=== PATIENT | female | born 1995 | race Caucasian/White ===

== ENCOUNTER 2018-10-19 05:39 | Inpatient (IN) ==
[2018-10-19] MEDS ORDERED: LACTATED RINGERS 500 ML IV PRN (06:10)
[2018-10-19] MEDS ORDERED: ONDANSETRON 4 MG/2 ML VIAL IV PRN (06:10)
[2018-10-19] MEDS ORDERED: BUTORPHANOL 2 MG/ML VIAL IV PRN (06:10)
[2018-10-19 06:30] LABS: Basophils % 0.4 % (0.0-0.8); Eosinophils # 0.2 10*3/uL (0.0-0.87); Eosinophils % 2.6 % (0.00-10.9); Hemoglobin 12.1 GM/DL (12.0-16.0); Immature Granulocytes % 0.7 %; Immature Granulocytes Absolute 0.07 #; Lymphocytes # 2.8 10*3/uL (1.4-4.0); Lymphocytes % 29.6 % (21.3-54.2); Mean Corpuscular HGB Conc 31.8 GM/DL (32-36); Mean Platelet Volume 13.2 FL (9.6-12.0); Monocytes % 5.9 % (1.7-12.7); Neutrophils % 60.8 % (38.7-73.9); Platelet Count 153 T/CUMM (130-400); Red Blood Count 3.96 MC/CUMM (3.8-5.5); Red Cell Distribution Width 14.1 % (9.3-17.3); White Blood Count 9.3 T/CUMM (4-12)
[2018-10-19] MEDS ORDERED: LACTATED RINGERS 1,000 ML IV SCH ×2 (06:30→08:30)
[2018-10-19] MEDS ORDERED: OXYTOCIN/LR 20 UNIT/1,000 ML BAG IV SCH (07:30)
[2018-10-19 08:04] LABS: INR 0.9; PT Patient Result 9.6 SECS; Partial Thromboplastin Time 26.7 SECS (0-40)
[2018-10-19] MEDS ORDERED: FAMOTIDINE 20 MG/2 ML VIAL IV ONE (08:14)
[2018-10-19] MEDS ORDERED: CITRIC ACID/SODIUM CITRATE 30 ML UDCUP PO ONE (08:14)
[2018-10-19] MEDS ORDERED: hydrOXYzine HCL 25 MG/1 ML VIAL IM PRN (08:14)
[2018-10-19] MEDS ORDERED: LACTATED RINGERS 1,000 ML IV ONE (08:14)
[2018-10-19] MEDS ORDERED: ePHEDrine 50 MG/ML AMP IV PRN (08:14)
[2018-10-19] MEDS ORDERED: NALOXONE 0.4 MG/ML VIAL IV PRN (08:14)
[2018-10-19] MEDS ORDERED: diphenhydrAMINE 50 MG/1 ML VIAL IV PRN ×2 (08:14)
[2018-10-19] MEDS ORDERED: PROMETHAZINE 25 MG/1 ML VIAL IM ONE (08:14)
[2018-10-19] MEDS ORDERED: fentaNYL 2 MCG/ROPIV 0.2% EPID 100 ML EPIDURAL SCH (08:30)
[2018-10-19 12:14] LABS: Apearance,Urine CLEAR (Clear); Bacteria,Urine Occasional /HPF (Few); Bilirubin,Urine Negative (Negative); Blood, Urine Negative (Negative); Glucose,Urine (UA) Negative (Negative); Ketones,Urine Negative (Negative); Mucus,Urine Few /LPF (Occasional); Nitrite,Urine Negative (Negative); Protein,Urine Negative; RBC,Urine 3 /HPF (0-4); Squamous Epithelial Cell,Urine Occasional /HPF (0-10); Urine Color Yellow (Yellow); Urine Specific Gravity 1.017 (1.001-1.035); Urine Urobilinogen < 2.0 EU/DL (0.2-1.0); WBC,Urine 1 /HPF (0-6)
[2018-10-19] MEDS ORDERED: LIDOCAINE 1% 50 ML VIAL ONE (13:31)
[2018-10-19] MEDS ORDERED: METHYLERGONOVINE 0.2 MG/1 ML AMP ONE (13:31)
[2018-10-19] MEDS ORDERED: miSOPROStol 200 MCG TABLET ONE (13:31)
[2018-10-19] MEDS ORDERED: CARBOPROST TROMETHAMINE 250 MCG/ML AMP IM ONE (13:32)
[2018-10-19] MEDS ORDERED: OXYTOCIN/LR 20 UNIT/1,000 ML BAG IV ONE (15:55)
[2018-10-19] MEDS ORDERED: IBUPROFEN 800 MG TABLET ONE (23:25)
[2018-10-19] MEDS: IBUPROFEN 800 MG TABLET PO PRN (23:26)
[2018-10-20 06:10] LABS: Basophils # 0.1 10*3/uL (0.0-0.2); Basophils % 0.5 % (0.0-0.8); Eosinophils # 0.2 10*3/uL (0.0-0.87); Eosinophils % 1.9 % (0.00-10.9); Hematocrit 37.1 VOL% (35.7-47.0); Hemoglobin 11.6 GM/DL (12.0-16.0); Immature Granulocytes % 0.7 %; Immature Granulocytes Absolute 0.09 #; Lymphocytes # 3.5 10*3/uL (1.4-4.0); Mean Corpuscular HGB Conc 31.3 GM/DL (32-36); Mean Corpuscular Volume 96.6 FL (87-102); Mean Platelet Volume 13.4 FL (9.6-12.0); Monocytes % 6.6 % (1.7-12.7); Neutrophils % 62.3 % (38.7-73.9); Platelet Count 138 T/CUMM (130-400); Red Blood Count 3.84 MC/CUMM (3.8-5.5); Red Cell Distribution Width 14.2 % (9.3-17.3); White Blood Count 12.4 T/CUMM (4-12)
[2018-10-20] MEDS: DOCUSATE SODIUM 100 MG CAPSULE PO SCH ×2 (08:44→21:09)
[2018-10-20] MEDS ORDERED: BENZOCAINE 20%/MENTHOL 0.5% SPRAY 56 GM CAN TOP PRN (08:46)
[2018-10-20] MEDS ORDERED: ACETAMINOPHEN/CODEINE 300-30 MG TABLET PO PRN (08:46)
[2018-10-20] MEDS: IBUPROFEN 800 MG TABLET PO PRN (11:56)
[2018-10-21] MEDS: IBUPROFEN 800 MG TABLET PO PRN (02:35)
[2018-10-21 06:58] VITALS: BP 87/45
[2018-10-21] MEDS: DOCUSATE SODIUM 100 MG CAPSULE PO SCH (08:37)
== END 2018-10-21 11:00 | disposition home or self-care (01) | DRG 807 ==
LOC: N.LDOUT 05:39 → N.LD 05:41 → N.OB 16:32
PROVIDERS: ADMIT Obstetrics & Gynecology; ATTEND Obstetrics & Gynecology